=== PATIENT | male | born 1950 | race Caucasian/White ===

== ENCOUNTER 2023-08-14 09:04 | Outpatient (CLI) | payer MEDICARE, MEDICAID, SELFPAY ==
--- NOTE | ~2023-08-14 | XR_ITS ---
Left Knee Technique: AP, lateral, and sunrise views were obtained. Clinical History: Pain Findings: No fracture or dislocation is seen. Osseous alignment is anatomic. There is medial compartm ent narrowing with mild tricompartmental degenerative spurring. Small joint effusion is seen. Impression: Degenerative change, as above. Small joint effusion. Reviewed, dictated and finalized at location . 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 Small joint effusion.
== END 2023-08-14 09:05 | disposition home or self-care (01) ==
PROVIDERS: Visit Provider Orthopaedic Surgery
DX: M25.462 Effusion, left knee (principal)
CPT/HCPCS: 73564